=== PATIENT | male | born 2000 | race Caucasian/White ===

== ENCOUNTER 2024-04-14 09:36 | Outpatient (REF) | payer OTHER, SELFPAY ==
[2024-04-15 14:24] LABS: Amphetamine Screen Urine Not Detected (Not Detect); Barbiturates, Urine Not Detected (Not Detect); Benzodiazepines Screen Urine Not Detected (Not Detect); Buprenorphine Scr Not Detected (Not Detect); Cannabinoid Screen Urine POSITIVE (Not Detect); Cocaine Screen Urine Not Detected (Not Detect); Fentanyl, urine Not Detected (Not Detect); Methadone Screen, Urine Not Detected (Not Detect); Opiate Screen Urine Not Detected (Not Detect); Oxycodone Screen Urine Not Detected (Not Detect); Phencyclidine Screen Urine Not Detected (Not Detect)
== END 2024-04-14 09:37 | disposition home or self-care (01) ==
LOC: HO.LNP 09:36
PROVIDERS: Visit Provider Psychiatry & Neurology Psychiatry
DX: F31.9 Bipolar disorder, unspecified (principal); F12.90 Cannabis use, unspecified, uncomplicated
CPT/HCPCS: 80307

== ENCOUNTER 2024-04-21 09:00 | Outpatient (RCR) | payer OTHER, SELFPAY ==
[2024-04-14 09:38] VITALS: BP 120/76; PULSE 88; TEMP 36.7
[2024-04-14 09:43] VITALS: BMI 30.4
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
--- NOTE | 2024-04-14 10:57 | P.HPPSP_ITS ---
HPI Date of Service: 04/14/24 Chief Complaint: bipolar Sources of Information: patient interviewed, chart reviewed and crisis/core team assessment reviewed [facility] Medical History (Updated 04/17/24 @ 23:05 by Aide Topete MD) Exercise-induced asthma Diagnostics Vital Signs (24Hr): BMI result Body Mass Index 30.4 Meds/Allergies Meds Home Medications ?Medication ?Instructions ?Recorded ?Confirmed ?Type lamotrigine 25 mg tablet (Lamictal) 25 mg PO DAILY 04/14/24 04/14/24 History melatonin 10 mg tablet 10 mg PO BEDTIME PRN Insomnia 04/14/24 04/14/24 History Allergies Allergies Allergy/AdvReac Type Severity Reaction Status Date / Time No Known Allergies Allergy Unverified 03/01/20 18:18 Mental Status Exam Mental Status Exam Narrative: MSE?? Alert, oriented, in no acute distress. Calm, cooperative, engaged. No psychomotor agitation or neurovegetative retardation. Eye contact maintained. Mood anxious, affect variable, mood congruent. Speech normal. Thought process linear, coherent. Thought content related to stressors, denies any hopelessness or SI. Denies any aggressive ideation or HI. No paranoia or delusional content elicited. No evidence of psychosis. Insight and judgment - fair but adequate. Assessment & Plan Assessment & Plan (1) Bipolar disorder, unspecified: Status: Acute Code(s): F31.9 - Bipolar disorder, unspecified (2) Cannabis abuse: Status: Acute Code(s): F12.10 - Cannabis abuse, uncomplicated (3) PTSD (post-traumatic stress disorder): Status: Acute Code(s): F43.10 - Post-traumatic stress disorder, unspecified Plan Admit to PHP VS reviewed: abrefile; BP? bpm Continue regular medications for now Routine lab work ordered UDS, EKG as indicated MassPat reviewed Continue to monitor as per protocol Patient educated on: diagnosis, medication risk/benefits and substance abuse Informed Consent: understands Reason for continued partial hosp. stay Substantial Risk for: rapid decompensation and med/psych decompensation Certification I certify that partial hospital treatment is medically necessary due to the symptoms and problems resulting from the patient's mental illness and the failure to treat the patient at the partial hospital level of care would likely result in the patient requiring inpatient psychiatric care which could not be prevented at a less intensive level of care. Time Spent With Patient Time: Total time managing care of this patient today __60__ minutes.
--- NOTE | 2024-04-14 14:56 | PC.NURSE ---
Patient started PHP today. There was a conflict with patient knowing another patient in the program with [facility]. I asked patient if he knew one of the patients in the program and he stated he did. He was not comfortable attending the program while the other patient was here. I asked him if he wanted to come back to the program when this other patient discharged in about 3 weeks and he agreed. He set up a re-assessment appointment with Tiffani to come back to the program in three weeks. Patient reports that he is safe and has no SI. Denied cravings for marijuana. Dr Topete and junior programmer are aware of the above information.
== END 2024-04-21 23:59 | disposition home or self-care (01) ==
LOC: HO.IOP 09:00
PROVIDERS: Visit Provider Psychiatry & Neurology Psychiatry
DX: F31.9 Bipolar disorder, unspecified (principal); F43.10 Post-traumatic stress disorder, unspecified; F12.10 Cannabis abuse, uncomplicated
CPT/HCPCS: 90791; S9480

== ENCOUNTER → 2024-04-21 09:00 | Outpatient (BNV) | payer OTHER, SELFPAY | PROVIDERS: Visit Provider Psychiatry & Neurology Psychiatry | DX: F31.9 Bipolar disorder, unspecified (principal); F12.10 Cannabis abuse, uncomplicated; F43.10 Post-traumatic stress disorder, unspecified | CPT/HCPCS: 99499 ==